=== PATIENT | female | born 1995 | race Hispanic/Latino ===

== ENCOUNTER 2021-11-25 13:03 | Day surgery (SDC) | payer OTHER ==
[2021-11-25] MEDS ORDERED: hydrALAZINE 20 MG/ML VIAL SLOW IVP PRN (14:32)
[2021-11-25 15:07] LABS: Mean Platelet Volume 13.7 fl (7.4-10.4); Platelet Count 134 10x3/uL (150-450)
[2021-11-25 15:08] LABS: #Eosinphils 0.1 10x3/uL (0.0-0.5); #Monocytes 0.6 10x3/uL (0.0-1.1); #Neutrophils 4.6 10x3/uL (1.5-8.4); %Basophils 0.5 % (0.0-2.0); %Eosinophils 1.6 % (0.0-6.0); %Lymphocytes 14.1 % (18.0-47.0); %Monocytes 8.9 % (0.0-10.0); %Neutrophils 74.4 % (40.0-75.0); Hemoglobin 11.9 g/dL (12.0-15.5); Mean Corpuscular HGB CONC 33.9 g/dL (32.0-36.0); Mean Corpuscular Hemoglobin 30.7 pg (27.0-33.0); Mean Corpuscular Volume 90.7 fl (81.6-98.3); RBC Distribution Width 16.7 % (11.5-14.5); Red Blood Cell (RBC) Count 3.87 10x6/uL (3.90-5.03); White Blood Cell (WBC) Count 6.2 10x3/uL (3.5-10.5)
[2021-11-25 15:10] LABS: Creatinine, Urine 81.27 mg/dL (47-110)
[2021-11-25 15:16] LABS: ALT (SGPT) 11 U/L (8-55); AST (SGOT) 20 U/L (5-34); Albumin 3.3 g/dL (3.5-5.0); Alkaline Phosphatase 219 U/L (40-110); Anion Gap 16 mmol/L (10-20); BUN (Urea Nitrogen) 5 mg/dL (7.0-18.7); Bilirubin, Total 0.4 mg/dL (0.2-1.2); Calc. Creatinine Clearance 0 mL/min (70-130); Calcium 8.8 mg/dL (7.8-10.44); Carbon Dioxide 19 mmol/L (22-29); Chloride 104 mmol/L (98-107); Estimated GFR 124; Globulin 3.3 g/dL (2.4-3.5); Glucose 71 mg/dL (70-105); Potassium 3.7 mmol/L (3.5-5.1); Protein, Total 6.6 g/dL (6.0-8.3); Sodium 135 mmol/L (136-145)
== END 2021-11-25 16:39 | disposition home or self-care (01) ==
LOC: CSHLD/OP 13:03
PROVIDERS: ATTEND Family Medicine
DX: O99.891 Other specified diseases and conditions complicating pregnancy (principal); R03.0 Elevated blood-pressure reading, without diagnosis of hypertension; O34.211 Maternal care for low transverse scar from previous cesarean delivery; Z3A.35 35 weeks gestation of pregnancy
CPT/HCPCS: 80053; 82570; 84156; 84550; 85025

== ENCOUNTER 2021-12-11 05:16 | Inpatient (IN) | payer MEDICAID, OTHER ==
[2021-12-09 13:24] LABS: Hemoglobin 12.1 g/dL (12.0-15.5); Mean Corpuscular HGB CONC 33.8 g/dL (32.0-36.0); Mean Corpuscular Volume 88.8 fl (81.6-98.3); Platelet Count 172 10x3/uL (150-450); RBC Distribution Width 16.3 % (11.5-14.5); Red Blood Cell (RBC) Count 4.03 10x6/uL (3.90-5.03); White Blood Cell (WBC) Count 7.4 10x3/uL (3.5-10.5)
[2021-12-09 13:45] LABS: Hep B Surf Ag Non-Reactive S/CO (NonReactive)
[2021-12-09 13:55] LABS: Syphilis Antibody Nonreactive (Nonreactive); Syphilis Antibody Index 0.05 S/CO (<1.00 Non-Reactive)
[2021-12-09 14:03] LABS: HBSAg Index 0.17 S/CO (0-0.99)
[2021-12-11 05:18] VITALS: BMI 26.6
[2021-12-11] MEDS ORDERED: Ondansetron PF 4 MG/2 ML Vial IVP PRN ×2 (05:24→07:25)
[2021-12-11] MEDS ORDERED: Bicitra 30 ML UDCUP PO PRN (05:24)
[2021-12-11] MEDS ORDERED: Promethazine HCl 25 MG/ML VIAL IM PRN ×2 (05:24→07:25)
[2021-12-11] MEDS ORDERED: Famotidine/PF 20 mg/2ml Vial SLOW IVP PRN (05:24)
[2021-12-11] MEDS ORDERED: hydrALAZINE 20 MG/ML VIAL SLOW IVP PRN ×2 (05:24→10:40)
[2021-12-11] MEDS ORDERED: Carboprost 250 MCG/ML AMP IM PRN (05:27)
[2021-12-11] MEDS ORDERED: Misoprostol 200 MCG TAB PR PRN (05:27)
[2021-12-11] MEDS ORDERED: NS w/ Oxytocin 30 units 500 ML IV SCH (05:30)
[2021-12-11] MEDS ORDERED: Lactated Ringer's 1,000 ML IV SCH (05:30)
[2021-12-11] MEDS ORDERED: ceFAZolin 2 GM/Dextrose 50 ML 2 GM in Premix Bag 1 BAG IVPB SCH (05:30)
[2021-12-11] MEDS ORDERED: Ondansetron PF 4 MG/2 ML Vial ONE (07:16)
[2021-12-11] MEDS ORDERED: Oxytocin 10 UNITS/ML VIAL ONE (07:16)
[2021-12-11] MEDS ORDERED: PHENYLEPHRINE-NS 100 MCG/ML 10 ML SYRINGE ONE (07:16)
[2021-12-11] MEDS ORDERED: Ketorolac Tromethamine 30 MG/ML VIAL ONE (07:17)
[2021-12-11] MEDS ORDERED: Morphine PF 10 MG/10 ML VIAL ONE (07:17)
[2021-12-11] MEDS ORDERED: ePHEDrine Sulfate 50 MG/10 ML VIAL ONE (07:17)
[2021-12-11] MEDS ORDERED: Phenylephrine 40 MG/NS 250 ML 250 ML ONE (07:17)
[2021-12-11] MEDS ORDERED: Naloxone HCl 0.4 mg/ml Vial IV PRN (07:25)
[2021-12-11] MEDS ORDERED: Fentanyl 100 MCG/2 ML VIAL SLOW IVP PRN (07:25)
[2021-12-11] MEDS ORDERED: Naloxone HCl 0.4 mg/ml Vial IVP PRN ×2 (07:25)
[2021-12-11] MEDS ORDERED: Ondansetron HCl/PF 4 MG/2 ML Vial IVP PRN (07:25)
[2021-12-11] MEDS ORDERED: Moisturizing Cream (Eucerin) 113 GM JAR TOP PRN (07:25)
[2021-12-11] MEDS ORDERED: Meperidine HCl/PF 25 MG/ML VIAL SLOW IVP PRN (07:25)
[2021-12-11] MEDS ORDERED: diphenhydrAMINE 50 MG/ML VIAL IVP PRN (07:25)
[2021-12-11] MEDS ORDERED: Promethazine HCl 25 MG SUPP PR PRN (07:25)
[2021-12-11] MEDS ORDERED: Communication Order-Pharmacy FS SCH (07:30)
[2021-12-11] MEDS ORDERED: CEFAZOLIN 2 GM VIAL ONE (07:33)
[2021-12-11] MEDS ORDERED: Promethazine HCl 25 MG/ML VIAL ONE (09:02)
[2021-12-11] MEDS ORDERED: Acetaminophen 325 MG TAB PO PRN (10:40)
[2021-12-11] MEDS ORDERED: Lanolin Ointment 7 GM TUBE TOP PRN (10:40)
[2021-12-11] MEDS ORDERED: Simethicone Chewable 80 MG TAB PO PRN (10:40)
[2021-12-11] MEDS ORDERED: Bisacodyl 10 MG SUPP PR PRN (10:40)
[2021-12-11] MEDS ORDERED: Ketorolac Tromethamine 30 MG/ML VIAL IVP SCH (14:25)
[2021-12-11] MEDS: Ketorolac Tromethamine 30 MG/ML VIAL IVP PRN (14:32)
[2021-12-11] MEDS: Ferrous Sulfate 325 MG TAB PO SCH (18:57)
[2021-12-12] MEDS: Ketorolac Tromethamine 30 MG/ML VIAL IVP PRN (01:27)
[2021-12-12 05:01] LABS: Mean Corpuscular HGB CONC 33.6 g/dL (32.0-36.0); Mean Corpuscular Volume 89.5 fl (81.6-98.3); Mean Platelet Volume 13.9 fl (7.4-10.4); Platelet Count 123 10x3/uL (150-450); RBC Distribution Width 16.5 % (11.5-14.5); Red Blood Cell (RBC) Count 3.33 10x6/uL (3.90-5.03); White Blood Cell (WBC) Count 7.1 10x3/uL (3.5-10.5)
[2021-12-12 05:19] LABS: Albumin 2.3 g/dL (3.5-5.0); Anion Gap 10 mmol/L (10-20); BUN (Urea Nitrogen) 7 mg/dL (7.0-18.7); Calc. Creatinine Clearance 130 mL/min (70-130); Calcium 7.9 mg/dL (7.8-10.44); Carbon Dioxide 21 mmol/L (22-29); Chloride 108 mmol/L (98-107); Estimated GFR 123; Glucose 74 mg/dL (70-105); Magnesium 1.6 mg/dL (1.6-2.6); Potassium 4.3 mmol/L (3.5-5.1); Sodium 135 mmol/L (136-145)
[2021-12-12] MEDS: HYDROcodone/Acetaminophen 5/325 mg Tablet PO PRN ×2 (05:39→13:15)
[2021-12-12] MEDS ORDERED: Polyethylene Glycol 3350 17 GM Packet PO SCH (09:00)
[2021-12-12] MEDS ORDERED: Prenatal Vitamin 1 TAB PO SCH (09:00)
[2021-12-12] MEDS ORDERED: Magnesium Oxide 400 MG TAB PO SCH ×2 (09:45→21:00)
[2021-12-12] MEDS: Docusate 100 MG CAP PO SCH ×2 (10:00→10:01)
[2021-12-12] MEDS: Ferrous Sulfate 325 MG TAB PO SCH (10:01)
[2021-12-12] MEDS: Simethicone Chewable 80 MG TAB PO SCH ×3 (10:17→13:15)
[2021-12-12] MEDS ORDERED: Boostrix 0.5 ML (Tdap) VIAL IM ONE (10:40)
[2021-12-12 11:36] VITALS: BP 127/74; TEMP 98
[2021-12-12] MEDS ORDERED: Enoxaparin Sodium 40 MG/0.4 ML SYRINGE SC SCH (21:00)
[2021-12-16] MEDS ORDERED: Ibuprofen 800 MG TAB PO SCH (22:00)
== END 2021-12-12 15:44 | disposition home or self-care (01) | DRG 786 ==
LOC: CSHLD 05:16 → CSHANTE 13:42
PROVIDERS: ADMIT Student in an Organized Health Care Education/Training Program; ATTEND Student in an Organized Health Care Education/Training Program
PROC: 10D00Z1 Extraction of Products of Conception, Low, Open Approach (ICD-10-PCS; principal; 2021-12-11)
PROC: 8E0ZXY6 Isolation (ICD-10-PCS; 2021-12-11)
DX: O34.211 Maternal care for low transverse scar from previous cesarean delivery (principal); U07.1 COVID-19; O98.52 Other viral diseases complicating childbirth; O13.4 Gestational [pregnancy-induced] hypertension without significant proteinuria, complicating childbirth; Z3A.38 38 weeks gestation of pregnancy; Z37.0 Single live birth; Z79.899 Other long term (current) drug therapy; D64.9 Anemia, unspecified; O99.02 Anemia complicating childbirth; R11.2 Nausea with vomiting, unspecified; O90.89 Other complications of the puerperium, not elsewhere classified
CPT/HCPCS: 51702; 80048; 83735; 84450; 85027; 86780; 86850; 86900; 86901; 87340; J0690; J1885; J2274; J2405; J2550; J2590; S0028; U0003; U0005